=== PATIENT | female | born 1960 | race Caucasian/White ===

== ENCOUNTER 2017-01-12 06:02 | Day surgery (SDC) | payer BC, OTHER ==
[2017-01-01 11:39] VITALS: BMI 50.1
[2017-01-12] MEDS ORDERED: LIDOCAINE HCL 2% (20ML MULTI-DOSE VIAL) NR ONE ×2 (07:06→07:55)
[2017-01-12] MEDS ORDERED: BUPIVACAINE HCL/PF 0.5% (5MG/ML) 10 ML VIAL ONE ×2 (07:07→07:56)
[2017-01-12] MEDS ORDERED: MIDAZOLAM HCL 2 MG/2 ML SINGLE DOSE VIAL ONE (07:28)
[2017-01-12] MEDS ORDERED: PROPOFOL 20 ML ONE ×11 (07:35→09:30)
[2017-01-12] MEDS ORDERED: BUPIVACAINE HCL/PF (5 MG/ML) 30 ML VIAL IJ ONE (08:01)
[2017-01-12] MEDS ORDERED: LIDOCAINE HCL 2% (50ML VIAL) INF ONE (08:01)
[2017-01-12] MEDS ORDERED: KETOROLAC TROMETHAMINE 30 MG/1 ML VIAL ONE (09:57)
[2017-01-12] MEDS ORDERED: ACETAMINOPHEN WITH CODEINE 300MG/30MG TABLET PO PRN (10:18)
[2017-01-12] MEDS ORDERED: PROMETHAZINE HCL 25 MG/1 ML VIAL IVPUSH PRN (10:22)
[2017-01-12] MEDS ORDERED: oxyCODONE HCL 5 MG TABLET PO PRN (10:22)
[2017-01-12] MEDS ORDERED: ONDANSETRON 4 MG/2 ML VIAL IVPUSH PRN (10:22)
[2017-01-12] MEDS ORDERED: ONDANSETRON 4 MG/2 ML VIAL ONE (10:24)
[2017-01-12] MEDS ORDERED: LACTATED RINGERS SOLUTION 1,000 ML IV SCH (10:30)
[2017-01-12] MEDS ORDERED: oxyCODONE HCL 5 MG TABLET ONE (11:24)
[2017-01-12 16:23] VITALS: BP 146/84; PULSE 82; TEMP 98.2
--- NOTE | 2017-01-12 19:41 | OP ---
DATE OF OPERATION: DATE OF DICTATION: 01/12/2017 ATTENDING SURGEON: Scout Curry DPM [employer] LABORER: Bill Dyson DPM, and Dr. Killian PREOPERATIVE DIAGNOSIS: Hallux valgus, hammertoes 2, 3, and 4, and medial soft tissue and bony mass/exostosis, all of the right foot. POSTOPERATIVE DIAGNOSIS: Hallux valgus, hammertoes 2, 3, and 4, and medial soft tissue and bony mass/exostosis, all of the right foot. PROCEDURE: Under satisfactory local anesthesia with IV sedation and use of an ankle tourniquet, attention was directed to the first metatarsal cuneiform joint. A linear incision was performed over the joint. This was carried down to the level of the periosteum, carefully preserving neurovascular structures and using Bovie on bleeders as necessary. The joint surfaces were removed using a surgical saw, and then tapered in order to perform the correction of the hallux valgus. When satisfactory positioning was noted, the area was fixated using a headless 4.0 cannulated screw and a dorsal plate. The plate was applied with an eccentric hole for additional compression. There were 4 screws utilizing the plate, 3.5 screws, 3 locking and the one compression screw, which was an unlocking screw. The plate had been pre-bent and contoured well with the bone, and intraoperative fluoroscopy noted that all fixation was stable and appropriate in placement and position. Following this procedure, the wound was flushed with copious saline, and it was closed with 2-0 Vicryl deep 3-0 Vicryl superficially, and 4-0 nylon for the skin with a combination of simple and horizontal mattress sutures. Attention was then directed to the first metatarsophalangeal joint where the incision was made over that joint and carried down to the level of the joint capsule. There was previous surgical intervention noted there, and as such there was scarred capsule. Careful dissection and again throughout the procedure use of fluoroscopy and carefully preserving and using the Bovie on bleeders when necessary was performed. After the medial eminence was observed and dissected free, it was also noted that intracapsular where there was a noted calcified separate mass. This separate calcified mass was excised in toto. Following this, the hypertrophic dorsal medial eminence was also removed utilizing a rongeur and also an osteotome and mallet. Following these procedures and fluoroscopy was noted that the correction was satisfactory. The wound was flushed with copious saline, and again capsule was closed with 2-0 Vicryl and subcutaneous with 3-0 Vicryl and skin with 4-0 nylon. Attention was then directed to the 2nd digit where an arthroplasty was performed after 2 bone incisions excised the dorsal skin lesion. The capsular and ligamentous structures attached to the head of the proximal phalanx were released after cutting through the extensor tendon transversely. The head of the proximal phalanx was excised using the double action bone cutting forceps. The ends were rasped smooth. The portion of the tendon that was in excess was resected. Tendon was closed with 3-0 Vicryl. All closure was done throughout the procedure after flushing with saline, and after closing with 2 dorsal sutures, the skin was closed with 4-0 nylon. Attention was then directed to the third toe, where the same exact procedure was performed as was performed on the second toe, and then the fourth toe, where the same exact procedure was performed, as was performed on the second and third toe. Following these arthroplasties and closure, the tourniquet was deflated finally. In addition, I did mention that the tourniquet had been deflated after the initial procedure after approximately 65 minutes, and then it was left deflated for 20 minutes, and then reinflated for an extra 40 minutes to finish the surgery. So following the final release of the tourniquet, a normal hyperemic flush returned to all digits of the operative foot. The patient tolerated all procedures and anesthesia well. Posterior splint was applied after bandaging of the foot, and intraoperative x-rays confirmed proper correction. Patient tolerated the procedure and anesthesia well. There were no complications. KRIS [id number]
--- NOTE | 2017-01-14 15:19 | PATH ---
Surgical Pathology Report Patient Name: WINSTON AMBRIZ [facility]. Rec. #: [id number] /Age/Gender: 1960 (Age: 56) / F Account: [id number] Location: [facility] Taken: 01/12/2017 Received: 01/12/2017 Reported: 01/14/2017 Physicians: Oriana Curry Specimen(s) Received BONE OF THE 1ST METATARSAL AND 2ND ,3RD AND 4TH TOES RIGHT Clinical History Hallux valgus Hammertoes 2, 3, 4 (right foot) Final Diagnosis BONE, RIGHT FOOT, BUNIONECTOMY AND HAMMER TOE CORRECTION: BONE WITH REACTIVE CHANGES, ALONG WITH ATTACHED CARTILAGE AND SYNOVIUM. SKIN WITH HYPERKERATOSIS AND PARAKERATOSIS PRESENT. Electronically Signed Mauricio Sanchez M.D. Gross Description Received in formalin labeled "bone of the first metatarsal and second, third, fourth toe right," is a 4.5 x 3.5 x 0.6 cm aggregate of casas bone and skin fragments. [employer] sections are submitted in one cassette, following decalcification. 01/13/201701/13/2017
== END 2017-01-12 12:20 | disposition home or self-care (01) ==
LOC: FASU 06:02
PROVIDERS: ATTEND Podiatrist
PROC: 0JBQ0ZZ Excision of Right Foot Subcutaneous Tissue and Fascia, Open Approach (ICD-10-PCS; 2017-01-12)
PROC: 0QSN04Z Reposition Right Metatarsal with Internal Fixation Device, Open Approach (ICD-10-PCS; principal; 2017-01-12 07:41)
PROC: 0SRP0JZ Replacement of Right Toe Phalangeal Joint with Synthetic Substitute, Open Approach (ICD-10-PCS; 2017-01-12 07:41)
DX: M20.11 Hallux valgus (acquired), right foot (principal); M20.41 Other hammer toe(s) (acquired), right foot; D49.2 Neoplasm of unspecified behavior of bone, soft tissue, and skin; M89.9 Disorder of bone, unspecified
CPT/HCPCS: 73630-TC-RT; 88304-TC; 88311-TC; 94760; 97116-GP